=== PATIENT | male | born 1980 | race Caucasian/White ===

== ENCOUNTER 2017-12-27 16:36 | Outpatient (CLI) | payer OTHER ==
--- NOTE | 2017-12-27 18:45 | MRI ---
MRI OF LUMBAR SPINE WITHOUT CONTRAST: 12/27/17 Multiplanar and multisequential imaging lumbar spine obtained. HISTORY: Acute low back pain. The lumbar vertebra maintain normal height and alignment. Disc spaces are preserved and exhibit jossy l signal. No evidence of significant disc bulge at L1-2, L2-3, and L3-4 levels. No central canal or f oraminal stenosis at any of these levels. At L4-5, there is a broad based bulge with small central protrusion indenting the anterior thecal sac . Mild facet arthrosis. Mild central canal stenosis. At L5-S1, there is a focal protrusion paracentrally to the left which does contact and mildly displac e the traversing left S1 nerve root. No central canal stenosis. Mild left foraminal encroachment. IMPRESSION: 1. A small focal disc protrusion paracentrally to the left at L5-S1 displaces the traversing lef t S1 nerve root. 2. At L4-5, disc bulge with small central protrusion indents the anterior thecal sac as describe d. POS: [facility]
== END 2017-12-27 16:37 | disposition home or self-care (01) ==
LOC: MRI 16:36
PROVIDERS: ATTEND Family Medicine
DX: M54.5 Low back pain (principal); C64.9 Malignant neoplasm of unspecified kidney, except renal pelvis; Z90.5 Acquired absence of kidney
CPT/HCPCS: 72148

== ENCOUNTER 2018-01-18 08:15 | Outpatient (CLI) | payer OTHER | END 2018-01-18 08:16 | disposition home or self-care (01) | LOC: BICCT 08:15 | PROVIDERS: ATTEND Urology | DX: K76.0 Fatty (change of) liver, not elsewhere classified; N18.3 Chronic kidney disease, stage 3 (moderate); Z90.49 Acquired absence of other specified parts of digestive tract; C64.2 Malignant neoplasm of left kidney, except renal pelvis; Z90.5 Acquired absence of kidney; R35.0 Frequency of micturition | CPT/HCPCS: 36415; 71046; 74176; 80053; 81001; 87086 ==

== ENCOUNTER 2019-05-07 08:54 | Outpatient (CLI) | payer BC ==
--- NOTE | 2019-05-07 09:43 | RAD ---
PA AND LATERAL CHEST: HISTORY: Malignant neoplasm of left kidney. Preoperative evaluation. COMPARISON: 01/18/2018 FINDINGS: The heart size is normal. The lungs are well expanded without focal areas of consolidation, pneumoth oraces, or pleural effusions. No acute osseous abnormalities are seen. IMPRESSION: Stable examination. No acute process. POS: [facility]
== END 2019-05-07 08:55 | disposition home or self-care (01) ==
LOC: RAD 08:54
PROVIDERS: ATTEND Urology
DX: Z01.818 Encounter for other preprocedural examination (principal); C64.2 Malignant neoplasm of left kidney, except renal pelvis; N18.9 Chronic kidney disease, unspecified; Z90.5 Acquired absence of kidney; R35.0 Frequency of micturition
CPT/HCPCS: 36415; 71046; 80053; 81003

== ENCOUNTER 2020-12-21 13:01 | Outpatient (CLI) | payer BC | END 2020-12-21 13:02 | disposition home or self-care (01) | LOC: SCSRAD 13:01 | PROVIDERS: ATTEND Family Medicine | DX: M25.541 Pain in joints of right hand (principal) ==

== ENCOUNTER 2021-04-16 21:56 | Emergency (ER) | payer BC ==
[2021-04-16] MEDS ORDERED: Proparacaine 0.5% Opth 15 ML BOT ONE (22:46)
[2021-04-16] MEDS ORDERED: Fluorescein Opthalmic Strip ONE (22:46)
== END 2021-04-16 23:29 | disposition home or self-care (01) ==
LOC: ERS 21:56
DX: S05.92XA Unspecified injury of left eye and orbit, initial encounter (principal); E21.3 Hyperparathyroidism, unspecified; I10 Essential (primary) hypertension; Z79.899 Other long term (current) drug therapy; W51.XXXA Accidental striking against or bumped into by another person, initial encounter
CPT/HCPCS: 99283